=== PATIENT | female | born 1980 | race Caucasian/White ===

== ENCOUNTER 2019-04-13 16:28 | Emergency (ER) | payer SELFPAY ==
[~2019-04-13] VITALS: Ht 162.6 cm; Wt 62.2 kg
[2019-04-13 16:35] VITALS: BP 110/73
[2019-04-13 18:12] LABS: APPEARANCE,URINE CLEAR (CLEAR); BILIRUBIN,URINE NEGATIVE (NEGATIVE); BLOOD, URINE NEGATIVE (NEGATIVE); COLOR,URINE YELLOW (YELLOW); LEUKOCYTE ESTERASE ,URINE NEGATIVE (NEGATIVE); NITRITE, URINE NEGATIVE (NEGATIVE); PH,URINE 6.5 (5.0-9.0); UGLUCOSE NEGATIVE (NEGATIVE)
[2019-04-13 21:17] VITALS: BP 118/73
== END 2019-04-13 21:17 | disposition home or self-care (01) ==
LOC: MED 16:28
DX: N83.202 Unspecified ovarian cyst, left side (principal); D25.9 Leiomyoma of uterus, unspecified; Z88.1 Allergy status to other antibiotic agents; Z88.6 Allergy status to analgesic agent
CPT/HCPCS: 76830; 81003; 81025; 99284; Q0092